=== PATIENT | female | born 1945 | race Caucasian/White ===

== ENCOUNTER 2023-09-06 12:34 | Inpatient (IN) | payer MEDICARE, MEDICAID ==
[~2023-09-06] VITALS: Ht 147.3 cm; Wt 50.3 kg
[2023-09-06 12:35] VITALS: BP_SYST 89; PULSE 83; RESP 24; TEMP 97.3; O2SAT 100
[2023-09-06] MEDS: cefTRIAXone 1 GM IVPB PREMIX 50 ML IV ONE (12:45)
[2023-09-06] MEDS ORDERED: ALBUTEROL SULFATE 0.083% 2.5 MG/3 ML VIAL.NEB INH ONE (12:51)
[2023-09-06] MEDS ORDERED: IPRATROPIUM BROM 0.5 MG/2.5 ML VIAL.NEB (ATROVENT) INH ONE (12:51)
[2023-09-06] MEDS: ALBUTEROL SULFATE 0.083% 2.5 MG/3 ML VIAL.NEB INH ONE (12:57)
[2023-09-06] MEDS: IPRATROPIUM BROM 0.5 MG/2.5 ML VIAL.NEB (ATROVENT) INH ONE (12:57)
[2023-09-06] MEDS ORDERED: AMLO5TAB4 PO (13:00)
[2023-09-06] MEDS ORDERED: SODI650T PO (13:00)
[2023-09-06] MEDS ORDERED: ACET-2634 PO (13:00)
[2023-09-06] MEDS ORDERED: ALLO100T PO (13:00)
[2023-09-06] MEDS ORDERED: BISA10SU61 RC (13:00)
[2023-09-06] MEDS: methylPREDNISolone SOD SUCC/PF 62.5 MG/ML VIAL IVP ONE (13:00)
[2023-09-06] MEDS ORDERED: HYDR-3917 PO (13:00)
[2023-09-06] MEDS ORDERED: ALBU2.5V7 INH (13:00)
[2023-09-06] MEDS ORDERED: MOM PO (13:00)
[2023-09-06] MEDS ORDERED: DOCU-144 PO (13:00)
[2023-09-06] MEDS ORDERED: SENN8.6T19 PO (13:00)
[2023-09-06] MEDS ORDERED: ATEN-41 PO (13:00)
[2023-09-06 13:59] LABS: BASOPHILS % (AUTO) 0.2 % (0.0-2.0); EOSINOPHILS # (AUTO) 0.2 K/uL (0.0-0.4); EOSINOPHILS % (AUTO) 1.2 % (0.0-4.0); HEMATOCRIT 24.2 % (36-48); HEMOGLOBIN 7.9 g/dL (12.0-16.0); LYMPHOCYTES # (AUTO) 2.4 K/uL (1.0-5.5); LYMPHOCYTES % (AUTO) 13.2 % (20.5-51.5); MEAN CORPUSCULAR HEMOGLOBIN 33 pg (27-31); MEAN CORPUSCULAR HGB CONC 33 % (32-36); MEAN CORPUSCULAR VOLUME 99 fL (79.0-98.0); MONOCYTES # (AUTO) 1.3 K/uL (0.0-1.0); MONOCYTES % (AUTO) 7.2 % (1.7-9.3); NEUTROPHILS # (AUTO) 14.2 K/uL (1.8-7.7); NEUTROPHILS % (AUTO) 78.2 % (40.0-70.0); PLATELET COUNT (AUTO) 469 K/uL (130-430); RED BLOOD CELL COUNT(AUTO) 2.43 MIL/uL (4.2-6.2); RED CELL DISTRIBUTION WIDTH 16.1 % (9.0-15.0); WHITE BLOOD COUNT (AUTO) 18.1 K/uL (4.8-10.8)
[2023-09-06 14:09] LABS: ALANINE AMINOTRANSFERASE 14 U/L (12-78); ALBUMIN 2.2 g/dL (3.4-4.8); ANION GAP 11 (5-15); ASPARTATE AMINOTRANSFERASE 15 U/L (10-37); BILIRUBIN,DIRECT 0.2 mg/dL (0.0-0.3); CALCIUM 8.8 mg/dL (8.4-11.0); CARBON DIOXIDE 21 mmol/L (23-29); CHLORIDE 107 mmol/L (98-107); CREATININE 0.62 mg/dL (0.55-1.30); GLUCOSE 115 mg/dL (74-106); POTASSIUM 4.5 mmol/L (3.5-5.1); SODIUM SERUM 139 mmol/L (136-145); TOTAL BILIRUBIN 0.5 mg/dL (0.0-1.0); UREA NITROGEN, BLOOD 22 mg/dL (8-21)
[2023-09-06 14:22] LABS: BILIRUBIN,URINE NEGATIVE (NEGATIVE); BLOOD, URINE NEGATIVE (NEGATIVE); CLARITY/URINE CLEAR (CLEAR); COLOR,URINE YELLOW (YELLOW); GLUCOSE,URINE NEGATIVE (NEGATIVE); KETONES,URINE NEGATIVE (NEGATIVE); LEUKOCYTE ESTERASE ,URINE TRACE (NEGATIVE); NITRITE, URINE POSITIVE (NEGATIVE); PH,URINE 5.5 (5.0-8.0); PROTEIN URINE TRACE (NEGATIVE); UROBILINOGEN,URINE 0.2 (0.2-1.0)
[2023-09-06 14:46] LABS: BACTERIA,URINE MODERATE /HPF (None Seen); RBC,URINE 0-3 /HPF (0-3)
[2023-09-06] MEDS: D5/0.45 NS 1,000 ML IV SCH (16:30)
[2023-09-06] MEDS: KETAMINE HCL 500 MG/10 ML VIAL IVP ONE (17:35)
[2023-09-06] MEDS ORDERED: LIDOCAINE 1%, 20 ML MDV 40 ML ONE (17:39)
[2023-09-06 18:24] VITALS: BP_SYST 89; PULSE 73; O2SAT 100
[2023-09-06] MEDS: MORPHINE 2 MG/ML INJ. SYRINGE IVP ONE (20:45)
[2023-09-06 21:30] VITALS: BP_SYST 137; PULSE 74; RESP 20; TEMP 98
[2023-09-07] VITALS (7 sets, daily range): BP systolic 110–155; PULSE 67–81; RESP 15–20; TEMP 97–98.3; O2SAT 91–98
[2023-09-07] MEDS ORDERED: ACETAMINOPHEN 325 MG TABLET PO PRN ×2 (10:15→10:30)
[2023-09-07] MEDS ORDERED: IPRATROPIUM BROM 0.5 MG/2.5 ML VIAL.NEB (ATROVENT) INH PRN (10:15)
[2023-09-07] MEDS ORDERED: LORazepam 2 MG/ML VIAL IVP PRN (10:15)
[2023-09-07] MEDS ORDERED: NALOXONE HCL 0.4 MG/ML AMP (NARCAN) IVP PRN ×2 (10:15)
[2023-09-07] MEDS ORDERED: ALBUTEROL SULFATE 0.083% 2.5 MG/3 ML VIAL.NEB INH PRN (10:15)
[2023-09-07] MEDS ORDERED: MILK OF MAGNESIA 30 ML UDC PO PRN (10:15)
[2023-09-07] MEDS ORDERED: BISACODYL 10 MG/SUPPOSITORY RC SCH (10:15)
[2023-09-07] MEDS ORDERED: HYDROcodone/ACETAMIN 5-325 MG TAB (NORCO/ VICODIN) PO PRN (10:15)
[2023-09-07] MEDS ORDERED: HYDROcodone/ACETAMIN 10-325 MG TAB PO PRN (10:15)
[2023-09-07] MEDS ORDERED: ONDANSETRON HCL 4 MG/2 ML VIAL IVP PRN (10:15)
[2023-09-07 10:26] LABS: BASOPHILS % (AUTO) 0.1 % (0.0-2.0); LYMPHOCYTES # (AUTO) 0.9 K/uL (1.0-5.5); LYMPHOCYTES % (AUTO) 4.7 % (20.5-51.5); MEAN CORPUSCULAR HEMOGLOBIN 32 pg (27-31); MEAN CORPUSCULAR HGB CONC 33 % (32-36); MEAN CORPUSCULAR VOLUME 98 fL (79.0-98.0); MONOCYTES # (AUTO) 0.4 K/uL (0.0-1.0); NEUTROPHILS # (AUTO) 17.4 K/uL (1.8-7.7); NEUTROPHILS % (AUTO) 93.2 % (40.0-70.0); PLATELET COUNT (AUTO) 380 K/uL (130-430); RED BLOOD CELL COUNT(AUTO) 2.19 MIL/uL (4.2-6.2); RED CELL DISTRIBUTION WIDTH 15.6 % (9.0-15.0); WHITE BLOOD COUNT (AUTO) 18.7 K/uL (4.8-10.8)
[2023-09-07 10:50] LABS: HEMATOCRIT 21.4 % (36-48)
[2023-09-07 10:53] LABS: ALANINE AMINOTRANSFERASE 13 U/L (12-78); ALBUMIN 1.8 g/dL (3.4-4.8); ANION GAP 10 (5-15); ASPARTATE AMINOTRANSFERASE 13 U/L (10-37); CALCIUM 7.5 mg/dL (8.4-11.0); CARBON DIOXIDE 21 mmol/L (23-29); CHLORIDE 108 mmol/L (98-107); CREATININE 0.58 mg/dL (0.55-1.30); GLUCOSE 148 mg/dL (74-106); SODIUM SERUM 139 mmol/L (136-145); TOTAL BILIRUBIN 0.4 mg/dL (0.0-1.0); TOTAL PROTEIN, SERUM 5.3 g/dL (6.4-8.3); UREA NITROGEN, BLOOD 18 mg/dL (8-21)
[2023-09-07] MEDS: ALLOPURINOL 100 MG TABLET (ZYLOPRIM) PO ONE (12:19)
[2023-09-07] MEDS: amLODIPine BESYLATE 5 MG TABLET PO ONE (12:24)
[2023-09-07] MEDS: ATENOLOL 25 MG TABLET(TENORMIN) PO ONE (12:24)
[2023-09-07] MEDS ORDERED: DOCUSATE SODIUM 100 MG CAPSULE PO SCH (21:00)
[2023-09-07] MEDS: DOCUSATE SODIUM 100 MG/10 ML UDC PO SCH (21:34)
[2023-09-07] MEDS: SENNOSIDES 8.6 MG TABLET PO SCH (21:34)
[2023-09-07] MEDS: SODIUM BICARBONATE 650 MG TABLET PO SCH (21:34)
[2023-09-08] VITALS: BP_SYST 108; PULSE 73; RESP 16; TEMP 97; O2SAT 98
[2023-09-08 05:18] LABS: BASOPHILS % (AUTO) 0.1 % (0.0-2.0); LYMPHOCYTES # (AUTO) 1.2 K/uL (1.0-5.5); LYMPHOCYTES % (AUTO) 8.4 % (20.5-51.5); MEAN CORPUSCULAR HEMOGLOBIN 32 pg (27-31); MEAN CORPUSCULAR HGB CONC 34 % (32-36); MEAN CORPUSCULAR VOLUME 96 fL (79.0-98.0); MONOCYTES # (AUTO) 0.8 K/uL (0.0-1.0); MONOCYTES % (AUTO) 5.6 % (1.7-9.3); NEUTROPHILS % (AUTO) 85.9 % (40.0-70.0); PLATELET COUNT (AUTO) 351 K/uL (130-430); RED CELL DISTRIBUTION WIDTH 15.5 % (9.0-15.0); WHITE BLOOD COUNT (AUTO) 13.9 K/uL (4.8-10.8)
[2023-09-08 05:42] LABS: ANION GAP 13 (5-15); CALCIUM 7.8 mg/dL (8.4-11.0); CARBON DIOXIDE 19 mmol/L (23-29); CHLORIDE 107 mmol/L (98-107); CREATININE 0.58 mg/dL (0.55-1.30); GLUCOSE 95 mg/dL (74-106); POTASSIUM 3.2 mmol/L (3.5-5.1); SODIUM SERUM 139 mmol/L (136-145); UREA NITROGEN, BLOOD 15 mg/dL (8-21)
[2023-09-08 07:50] VITALS: BP_SYST 158; PULSE 68; RESP 16; TEMP 97.3; O2SAT 99
[2023-09-08 07:54] LABS: HEMATOCRIT 20.2 % (36-48); HEMOGLOBIN 6.8 g/dL (12.0-16.0)
[2023-09-08 08:15] VITALS: O2SAT 98
[2023-09-08] MEDS: ATENOLOL 25 MG TABLET(TENORMIN) PO SCH (09:11)
[2023-09-08] MEDS: amLODIPine BESYLATE 5 MG TABLET PO SCH (09:12)
[2023-09-08] MEDS: ALLOPURINOL 100 MG TABLET (ZYLOPRIM) PO SCH (09:21)
[2023-09-08 11:08] VITALS: BP_SYST 111; PULSE 73; RESP 16; TEMP 97.6; O2SAT 99
[2023-09-08] MEDS: POTASSIUM CHLORIDE 20 MEQ TABLET.ER PO ONE (12:04)
[2023-09-08] MEDS: NORMAL SALINE 5 ML DISP.SYRIN IVF SCH (14:48)
[2023-09-08 15:30] VITALS: BP_SYST 101; PULSE 72; RESP 15; TEMP 97.7; O2SAT 98
[2023-09-08 20:00] VITALS: BP_SYST 142; PULSE 65; RESP 17; TEMP 97.8; O2SAT 98
[2023-09-09] VITALS (7 sets, daily range): BP systolic 118–138; PULSE 76–82; RESP 14–20; TEMP 97.3–98.1; O2SAT 93–99
[2023-09-09 06:09] LABS: BASOPHILS % (AUTO) 0.1 % (0.0-2.0); EOSINOPHILS # (AUTO) 0.1 K/uL (0.0-0.4); EOSINOPHILS % (AUTO) 0.4 % (0.0-4.0); HEMATOCRIT 30.2 % (36-48); HEMOGLOBIN 10.2 g/dL (12.0-16.0); LYMPHOCYTES # (AUTO) 1.8 K/uL (1.0-5.5); LYMPHOCYTES % (AUTO) 13.2 % (20.5-51.5); MEAN CORPUSCULAR HEMOGLOBIN 31 pg (27-31); MEAN CORPUSCULAR HGB CONC 34 % (32-36); MEAN CORPUSCULAR VOLUME 93 fL (79.0-98.0); MONOCYTES # (AUTO) 0.8 K/uL (0.0-1.0); MONOCYTES % (AUTO) 5.6 % (1.7-9.3); NEUTROPHILS # (AUTO) 11.3 K/uL (1.8-7.7); NEUTROPHILS % (AUTO) 80.7 % (40.0-70.0); PLATELET COUNT (AUTO) 277 K/uL (130-430); RED BLOOD CELL COUNT(AUTO) 3.26 MIL/uL (4.2-6.2); RED CELL DISTRIBUTION WIDTH 16.3 % (9.0-15.0); WHITE BLOOD COUNT (AUTO) 13.9 K/uL (4.8-10.8)
[2023-09-09 06:14] LABS: ERYTHROCYTE SEDIMENTATION RATE 20 MM/HR (0-20)
[2023-09-09 06:50] LABS: ALANINE AMINOTRANSFERASE 9 U/L (12-78); ALBUMIN 1.7 g/dL (3.4-4.8); ANION GAP 10 (5-15); ASPARTATE AMINOTRANSFERASE 17 U/L (10-37); CALCIUM 8.1 mg/dL (8.4-11.0); CARBON DIOXIDE 22 mmol/L (23-29); CHLORIDE 109 mmol/L (98-107); CREATININE 0.58 mg/dL (0.55-1.30); GLUCOSE 71 mg/dL (74-106); POTASSIUM 3.4 mmol/L (3.5-5.1); SODIUM SERUM 141 mmol/L (136-145); TOTAL PROTEIN, SERUM 5.1 g/dL (6.4-8.3); UREA NITROGEN, BLOOD 12 mg/dL (8-21)
[2023-09-09] MEDS: POTASSIUM CHLORIDE 20 MEQ TABLET.ER PO ONE (10:40)
[2023-09-09] MEDS: CALCIUM GLUC 2 GM/100ML-NACL 100 ML IV ONE (10:40)
[2023-09-10 00:10] VITALS: BP_SYST 137; PULSE 85; RESP 16; TEMP 97.8; O2SAT 99
[2023-09-10 05:40] LABS: BASOPHILS % (AUTO) 0.1 % (0.0-2.0); EOSINOPHILS # (AUTO) 0.1 K/uL (0.0-0.4); EOSINOPHILS % (AUTO) 0.9 % (0.0-4.0); HEMOGLOBIN 10.2 g/dL (12.0-16.0); LYMPHOCYTES # (AUTO) 1.8 K/uL (1.0-5.5); LYMPHOCYTES % (AUTO) 15.3 % (20.5-51.5); MEAN CORPUSCULAR HEMOGLOBIN 32 pg (27-31); MEAN CORPUSCULAR HGB CONC 34 % (32-36); MEAN CORPUSCULAR VOLUME 93 fL (79.0-98.0); MONOCYTES # (AUTO) 0.5 K/uL (0.0-1.0); MONOCYTES % (AUTO) 4.6 % (1.7-9.3); NEUTROPHILS # (AUTO) 9.3 K/uL (1.8-7.7); NEUTROPHILS % (AUTO) 79.1 % (40.0-70.0); PLATELET COUNT (AUTO) 219 K/uL (130-430); RED BLOOD CELL COUNT(AUTO) 3.23 MIL/uL (4.2-6.2); RED CELL DISTRIBUTION WIDTH 16.7 % (9.0-15.0); WHITE BLOOD COUNT (AUTO) 11.8 K/uL (4.8-10.8)
[2023-09-10 05:46] LABS: ERYTHROCYTE SEDIMENTATION RATE 18 MM/HR (0-20)
[2023-09-10 05:51] LABS: ANION GAP 11 (5-15); CALCIUM 8.4 mg/dL (8.4-11.0); CARBON DIOXIDE 22 mmol/L (23-29); CHLORIDE 109 mmol/L (98-107); CREATININE 0.55 mg/dL (0.55-1.30); GLUCOSE 76 mg/dL (74-106); POTASSIUM 3.1 mmol/L (3.5-5.1); SODIUM SERUM 142 mmol/L (136-145); UREA NITROGEN, BLOOD 11 mg/dL (8-21)
[2023-09-10 07:45] VITALS: BP_SYST 119; PULSE 76; RESP 16; TEMP 98.4; O2SAT 98
[2023-09-10 07:46] VITALS: O2SAT 98
[2023-09-10] MEDS: POTASSIUM CHLORIDE 20 MEQ TABLET.ER PO ONE (11:08)
[2023-09-10 12:36] VITALS: BP_SYST 118; PULSE 77; RESP 17; TEMP 98.3; O2SAT 97
[2023-09-10] MEDS ORDERED: LEVO-62 PO (16:45)
[2023-09-10 16:54] VITALS: BP_SYST 120; PULSE 78; RESP 16; TEMP 98.5; O2SAT 97
== END 2023-09-10 18:30 | DRG 871 ==
LOC: SED 12:34 → SMU 16:17 → STU 20:24
PROVIDERS: ADMIT Preventive Medicine Preventive Medicine/Occupational Environmental Medicine; ATTEND Preventive Medicine Preventive Medicine/Occupational Environmental Medicine
PROC: 0W9930Z Drainage of Right Pleural Cavity with Drainage Device, Percutaneous Approach (ICD-10-PCS; 2023-09-06)
PROC: 5A09357 Assistance with Respiratory Ventilation, Less than 24 Consecutive Hours, Continuous Positive Airway Pressure (ICD-10-PCS; 2023-09-06)
PROC: 30233N1 Transfusion of Nonautologous Red Blood Cells into Peripheral Vein, Percutaneous Approach (ICD-10-PCS; principal; 2023-09-08)
DX: A41.9 Sepsis, unspecified organism (principal); E43 Unspecified severe protein-calorie malnutrition; J18.9 Pneumonia, unspecified organism; J96.01 Acute respiratory failure with hypoxia; J94.2 Hemothorax; J94.8 Other specified pleural conditions; I10 Essential (primary) hypertension; F03.90 Unspecified dementia, unspecified severity, without behavioral disturbance, psychotic disturbance, mood disturbance, and anxiety; D64.9 Anemia, unspecified; M10.9 Gout, unspecified; E87.6 Hypokalemia; K59.00 Constipation, unspecified; D75.839 Thrombocytosis, unspecified; Z79.899 Other long term (current) drug therapy; Z68.23 Body mass index [BMI] 23.0-23.9, adult; Z66 Do not resuscitate
CPT/HCPCS: 36415; 71045; 80048; 80053; 80076; 81000; 81001; 81015; 83605; 84484; 85025; 85651; 86886; 86900; 86901; 86920; 87040; 87081; 87086; 94070; 94640; 94660; 94760; 99285; G0378; J0696; J1956; J2001; J2270; J2930; P9021

== ENCOUNTER 2023-09-19 00:25 | Inpatient (IN) | payer MEDICARE, MEDICAID ==
[2023-09-19] VITALS (27 sets, daily range): BP systolic 91–141; PULSE 73–113; RESP 21–49; TEMP 96.4–98.6; O2SAT 90–99
[~2023-09-19] VITALS: Ht 149.9 cm; Wt 54.4 kg
[~2023-09-19 00:25] MED LIST: ACET-2634 PO; ALBU2.5V7 INH; ALLO100T PO; AMLO5TAB4 PO; ATEN-41 PO; BISA10SU61 RC; DOCU-144 PO; HYDR-3917 PO; LEVO-62 PO; MOM PO; SENN8.6T19 PO; SODI650T PO
[2023-09-19 01:03] LABS: HEMOGLOBIN 9.2 g/dL (12.0-16.0); MEAN CORPUSCULAR HEMOGLOBIN 31 pg (27-31)
[2023-09-19 01:13] LABS: BASOPHILS # (AUTO) 0.1 K/uL (0.0-0.2); EOSINOPHILS # (AUTO) 0.1 K/uL (0.0-0.4); EOSINOPHILS % (AUTO) 0.7 % (0.0-4.0); HEMATOCRIT 27.1 % (36-48); INFLUENZA TYPE A Negative (NEGATIVE); INFLUENZA TYPE B NEGATIVE (NEGATIVE); LYMPHOCYTES # (AUTO) 1.5 K/uL (1.0-5.5); LYMPHOCYTES % (AUTO) 13.7 % (20.5-51.5); MEAN CORPUSCULAR HGB CONC 34 % (32-36); MEAN CORPUSCULAR VOLUME 92 fL (79.0-98.0); MONOCYTES # (AUTO) 0.8 K/uL (0.0-1.0); MONOCYTES % (AUTO) 7.7 % (1.7-9.3); NEUTROPHILS # (AUTO) 8.4 K/uL (1.8-7.7); NEUTROPHILS % (AUTO) 76.9 % (40.0-70.0); PLATELET COUNT (AUTO) 231 K/uL (130-430); RED BLOOD CELL COUNT(AUTO) 2.94 MIL/uL (4.2-6.2); RED CELL DISTRIBUTION WIDTH 16.4 % (9.0-15.0); WHITE BLOOD COUNT (AUTO) 10.9 K/uL (4.8-10.8)
[2023-09-19 01:14] LABS: BILIRUBIN,URINE 2+ (NEGATIVE); BLOOD, URINE NEGATIVE (NEGATIVE); CLARITY/URINE CLEAR (CLEAR); COLOR,URINE YELLOW (YELLOW); GLUCOSE,URINE TRACE (NEGATIVE); KETONES,URINE 1+ (NEGATIVE); LEUKOCYTE ESTERASE ,URINE TRACE (NEGATIVE); NITRITE, URINE NEGATIVE (NEGATIVE); PH,URINE 5.5 (5.0-8.0); PROTEIN URINE 1+ (NEGATIVE)
[2023-09-19] MEDS: cefTRIAXone 1 GM IVPB PREMIX 50 ML IV ONE (01:16)
[2023-09-19 01:20] LABS: ANION GAP 16 (5-15); CALCIUM 7.4 mg/dL (8.4-11.0); CARBON DIOXIDE 20 mmol/L (23-29); CHLORIDE 97 mmol/L (98-107); CREATININE 1.12 mg/dL (0.55-1.30); GLUCOSE 83 mg/dL (74-106); POTASSIUM 3.3 mmol/L (3.5-5.1); SODIUM SERUM 133 mmol/L (136-145); UREA NITROGEN, BLOOD 11 mg/dL (8-21)
[2023-09-19] MEDS: methylPREDNISolone SOD SUCC/PF 62.5 MG/ML VIAL IVP ONE (01:55)
[2023-09-19] MEDS ORDERED: MAGNESIUM SULFATE 1 GM/2 ML VIAL IV ONE (03:15)
[2023-09-19] MEDS: MAGNESIUM SULFATE/D5W 1 GM/100 ML PIGGYBACK IV ONE (04:29)
[2023-09-19] MEDS: D5LR 1,000 ML IV SCH (04:29)
[2023-09-19] MEDS: METHYLPREDNISOLONE SOD SUCC 40 MG/ML VIAL IVP SCH (05:32)
[2023-09-19] MEDS ORDERED: MILK OF MAGNESIA 30 ML UDC PO PRN (06:45)
[2023-09-19] MEDS ORDERED: NALOXONE HCL 0.4 MG/ML AMP (NARCAN) IVP PRN (06:45)
[2023-09-19] MEDS ORDERED: ACETAMINOPHEN 500 MG TABLET PO PRN (06:45)
[2023-09-19] MEDS ORDERED: HYDROcodone/ACETAMIN 5-325 MG TAB (NORCO/ VICODIN) PO PRN (06:45)
[2023-09-19] MEDS ORDERED: KCL 40 mEq in 100 mL (PREMIX) 100 ML IV ONE (06:45)
[2023-09-19] MEDS: IPRATROPIUM/ALBUTEROL SULFATE 3 ML AMPUL.NEB (DUONEB) INH SCH (07:26)
[2023-09-19 08:12] LABS: ABG O2 SAT% ESTIMATE 97.2 % (94.0-100.0); BLOOD GAS BASE EXCESS -3.6 mmol/L (-3.0-3.0); BLOOD GAS HCO3 18.8 mmol/L (21.0-27.0); BLOOD GAS PCO2 27.7 mmHg (35.0-45.0); BLOOD GAS PO2 88.1 mmHg (75.0-100.0)
[2023-09-19 08:21] LABS: ALLEN'S TEST POSITIVE (P)
[2023-09-19 08:26] LABS: BASOPHILS % (AUTO) 0.2 % (0.0-2.0); HEMATOCRIT 25.1 % (36-48); HEMOGLOBIN 8.1 g/dL (12.0-16.0); LYMPHOCYTES # (AUTO) 0.4 K/uL (1.0-5.5); LYMPHOCYTES % (AUTO) 5.1 % (20.5-51.5); MEAN CORPUSCULAR HEMOGLOBIN 31 pg (27-31); MEAN CORPUSCULAR HGB CONC 33 % (32-36); MEAN CORPUSCULAR VOLUME 95 fL (79.0-98.0); MONOCYTES # (AUTO) 0.1 K/uL (0.0-1.0); MONOCYTES % (AUTO) 1.2 % (1.7-9.3); NEUTROPHILS # (AUTO) 6.9 K/uL (1.8-7.7); NEUTROPHILS % (AUTO) 93.5 % (40.0-70.0); PLATELET COUNT (AUTO) 215 K/uL (130-430); RED BLOOD CELL COUNT(AUTO) 2.64 MIL/uL (4.2-6.2); RED CELL DISTRIBUTION WIDTH 16.4 % (9.0-15.0); WHITE BLOOD COUNT (AUTO) 7.4 K/uL (4.8-10.8)
[2023-09-19 08:31] LABS: TOTAL IRON BIND. CAPACITY 92 ug/dL (250-450)
[2023-09-19 08:40] LABS: ALBUMIN 1.5 g/dL (3.4-4.8); ANION GAP 19 (5-15); ASPARTATE AMINOTRANSFERASE 13 U/L (10-37); CALCIUM 7.5 mg/dL (8.4-11.0); CARBON DIOXIDE 17 mmol/L (23-29); CHLORIDE 100 mmol/L (98-107); CREATININE 1.22 mg/dL (0.55-1.30); POTASSIUM 3.1 mmol/L (3.5-5.1); SODIUM SERUM 136 mmol/L (136-145); TOTAL BILIRUBIN 1.1 mg/dL (0.0-1.0); TOTAL PROTEIN, SERUM 4.6 g/dL (6.4-8.3); UREA NITROGEN, BLOOD 12 mg/dL (8-21)
[2023-09-19 08:44] LABS: GLUCOSE 520 mg/dL (74-106)
[2023-09-19] MEDS ORDERED: BISACODYL 10 MG/SUPPOSITORY RC PRN (09:00)
[2023-09-19] MEDS ORDERED: AZITHROMYCIN 500 MG in NS 250 ML IV SCH (09:00)
[2023-09-19] MEDS ORDERED: amLODIPine BESYLATE 5 MG TABLET PO SCH (09:00)
[2023-09-19 09:01] LABS: ALANINE AMINOTRANSFERASE 6 U/L (12-78)
[2023-09-19] MEDS: ATENOLOL 25 MG TABLET(TENORMIN) PO SCH (09:03)
[2023-09-19] MEDS: ALLOPURINOL 100 MG TABLET (ZYLOPRIM) PO SCH (09:04)
[2023-09-19] MEDS: DOCUSATE SODIUM 100 MG CAPSULE PO SCH (09:06)
[2023-09-19] MEDS: PIPERACILLIN/TAZO 3.375 GM in D5W 50 ML IV ONE (09:07)
[2023-09-19] MEDS: POTASSIUM CHLORIDE 40 MEQ in NS 250 ML IV ONE (09:33)
[2023-09-19] MEDS: AZITHROMYCIN 500 MG in NS 250 ML IV SCH (14:21)
[2023-09-19] MEDS: PIPERACILLIN/TAZO 3.375 GM in D5W 50 ML IV SCH (14:26)
[2023-09-19] MEDS: SENNOSIDES 8.6 MG TABLET PO SCH (21:21)
[2023-09-20] VITALS (20 sets, daily range): BP systolic 87–136; PULSE 89–118; RESP 22–44; TEMP 97.1–99.1; O2SAT 91–98
[2023-09-20 06:43] LABS: BASOPHILS % (AUTO) 0.1 % (0.0-2.0); HEMATOCRIT 24.4 % (36-48); HEMOGLOBIN 8.5 g/dL (12.0-16.0); LYMPHOCYTES # (AUTO) 0.3 K/uL (1.0-5.5); LYMPHOCYTES % (AUTO) 3.6 % (20.5-51.5); MEAN CORPUSCULAR HEMOGLOBIN 32 pg (27-31); MEAN CORPUSCULAR HGB CONC 35 % (32-36); MEAN CORPUSCULAR VOLUME 92 fL (79.0-98.0); MONOCYTES # (AUTO) 0.1 K/uL (0.0-1.0); MONOCYTES % (AUTO) 1.2 % (1.7-9.3); NEUTROPHILS % (AUTO) 95.1 % (40.0-70.0); PLATELET COUNT (AUTO) 267 K/uL (130-430); RED BLOOD CELL COUNT(AUTO) 2.65 MIL/uL (4.2-6.2); RED CELL DISTRIBUTION WIDTH 16.4 % (9.0-15.0); WHITE BLOOD COUNT (AUTO) 9.5 K/uL (4.8-10.8)
[2023-09-20 07:20] LABS: ALANINE AMINOTRANSFERASE 10 U/L (12-78); ALBUMIN 1.7 g/dL (3.4-4.8); ANION GAP 20 (5-15); ASPARTATE AMINOTRANSFERASE 26 U/L (10-37); CALCIUM 7.7 mg/dL (8.4-11.0); CARBON DIOXIDE 17 mmol/L (23-29); CHLORIDE 104 mmol/L (98-107); CREATININE 1.26 mg/dL (0.55-1.30); GLUCOSE 154 mg/dL (74-106); PHOSPHORUS 3.7 mg/dL (2.7-4.5); POTASSIUM 3.2 mmol/L (3.5-5.1); SODIUM SERUM 141 mmol/L (136-145); TOTAL BILIRUBIN 0.9 mg/dL (0.0-1.0); TOTAL PROTEIN, SERUM 5.2 g/dL (6.4-8.3); UREA NITROGEN, BLOOD 20 mg/dL (8-21)
[2023-09-20] MEDS ORDERED: cefTRIAXone 1 GM VIAL IV ONE (09:00)
[2023-09-20] MEDS: KCL 40 mEq in 100 mL (PREMIX) 100 ML IV ONE (13:13)
[2023-09-20] MEDS: MEGESTROL ACETATE 400 MG/10 ML UDC PO ONE (13:55)
[2023-09-20] MEDS: POTASSIUM CHLORIDE 40 MEQ in NS 250 ML IV ONE (14:36)
[2023-09-20] MEDS: METHYLPREDNISOLONE SOD SUCC 40 MG/ML VIAL IVP SCH (18:42)
[2023-09-20] MEDS: QUEtiapine FUMARATE 25 MG TABLET PO SCH (21:00)
[2023-09-21] VITALS (14 sets, daily range): BP systolic 83–114; PULSE 95–112; RESP 18–38; TEMP 98.4–99.4; O2SAT 91–98
[2023-09-21 04:45] LABS: BASOPHILS % (AUTO) 0.1 % (0.0-2.0); HEMOGLOBIN 7.9 g/dL (12.0-16.0); LYMPHOCYTES # (AUTO) 0.4 K/uL (1.0-5.5); LYMPHOCYTES % (AUTO) 5.4 % (20.5-51.5); MEAN CORPUSCULAR HEMOGLOBIN 32 pg (27-31); MEAN CORPUSCULAR HGB CONC 34 % (32-36); MEAN CORPUSCULAR VOLUME 93 fL (79.0-98.0); MONOCYTES # (AUTO) 0.2 K/uL (0.0-1.0); MONOCYTES % (AUTO) 2.4 % (1.7-9.3); NEUTROPHILS # (AUTO) 6.8 K/uL (1.8-7.7); NEUTROPHILS % (AUTO) 92.1 % (40.0-70.0); PLATELET COUNT (AUTO) 300 K/uL (130-430); RED BLOOD CELL COUNT(AUTO) 2.48 MIL/uL (4.2-6.2); RED CELL DISTRIBUTION WIDTH 16.4 % (9.0-15.0); WHITE BLOOD COUNT (AUTO) 7.4 K/uL (4.8-10.8)
[2023-09-21 05:16] LABS: ALANINE AMINOTRANSFERASE 14 U/L (12-78); ALBUMIN 1.7 g/dL (3.4-4.8); ANION GAP 15 (5-15); ASPARTATE AMINOTRANSFERASE 17 U/L (10-37); CALCIUM 7.4 mg/dL (8.4-11.0); CARBON DIOXIDE 20 mmol/L (23-29); CHLORIDE 111 mmol/L (98-107); CREATININE 1.36 mg/dL (0.55-1.30); GLUCOSE 139 mg/dL (74-106); POTASSIUM 3.9 mmol/L (3.5-5.1); SODIUM SERUM 146 mmol/L (136-145); TOTAL BILIRUBIN 0.7 mg/dL (0.0-1.0); TOTAL PROTEIN, SERUM 4.9 g/dL (6.4-8.3); UREA NITROGEN, BLOOD 24 mg/dL (8-21)
[2023-09-21] MEDS: MEGESTROL ACETATE 400 MG/10 ML UDC PO SCH (09:00)
[2023-09-21] MEDS: ALBUTEROL SULFATE 0.083% 2.5 MG/3 ML VIAL.NEB INH PRN (19:10)
[2023-09-21] MEDS: EPOETIN ALFA-EPBX 4,000 UNITS/ML VIAL SUBCUT SCH (20:50)
[2023-09-21] MEDS: SOD FERRIC GLUC COMPLEX/SUC 125 MG in NS 100 ML IV SCH (20:50)
[2023-09-21] MEDS: QUEtiapine FUMARATE 25 MG TABLET PO ONE (20:51)
[2023-09-22] VITALS (11 sets, daily range): BP systolic 110–148; PULSE 88–99; RESP 17–30; TEMP 97.2–100.1; O2SAT 94–99
[2023-09-22 04:03] LABS: HEMATOCRIT 24.1 % (36-48); HEMOGLOBIN 8.2 g/dL (12.0-16.0); LYMPHOCYTES # (AUTO) 0.3 K/uL (1.0-5.5); LYMPHOCYTES % (AUTO) 5.7 % (20.5-51.5); MEAN CORPUSCULAR HEMOGLOBIN 32 pg (27-31); MEAN CORPUSCULAR HGB CONC 34 % (32-36); MEAN CORPUSCULAR VOLUME 93 fL (79.0-98.0); MONOCYTES # (AUTO) 0.1 K/uL (0.0-1.0); MONOCYTES % (AUTO) 1.9 % (1.7-9.3); NEUTROPHILS # (AUTO) 4.8 K/uL (1.8-7.7); NEUTROPHILS % (AUTO) 92.4 % (40.0-70.0); PLATELET COUNT (AUTO) 312 K/uL (130-430); RED BLOOD CELL COUNT(AUTO) 2.59 MIL/uL (4.2-6.2); RED CELL DISTRIBUTION WIDTH 16.6 % (9.0-15.0); WHITE BLOOD COUNT (AUTO) 5.2 K/uL (4.8-10.8)
[2023-09-22 04:12] LABS: INR 1.3 (0.8-1.2); PROTHROMBIN TIME 12.9 SECS (9.5-12.5)
[2023-09-22 04:22] LABS: ALANINE AMINOTRANSFERASE 10 U/L (12-78); ALBUMIN 1.9 g/dL (3.4-4.8); ANION GAP 13 (5-15); ASPARTATE AMINOTRANSFERASE 9 U/L (10-37); CALCIUM 7.6 mg/dL (8.4-11.0); CARBON DIOXIDE 23 mmol/L (23-29); CHLORIDE 114 mmol/L (98-107); CREATININE 1.06 mg/dL (0.55-1.30); GLUCOSE 114 mg/dL (74-106); POTASSIUM 3.3 mmol/L (3.5-5.1); SODIUM SERUM 150 mmol/L (136-145); TOTAL BILIRUBIN 0.6 mg/dL (0.0-1.0); TOTAL PROTEIN, SERUM 4.9 g/dL (6.4-8.3); UREA NITROGEN, BLOOD 21 mg/dL (8-21)
[2023-09-22] MEDS: CEFAZOLIN 1 GM IVPB PREMIX 50 ML IV ONE (09:57)
[2023-09-22] MEDS: fentaNYL CITRATE/PF 100 MCG/2 ML AMP ONE (10:07)
[2023-09-22] MEDS: MIDAZOLAM HCL 5 MG/5 ML VIAL ONE (10:07)
[2023-09-22] MEDS: QUEtiapine FUMARATE 25 MG TABLET PO SCH (17:06)
[2023-09-22] MEDS: POTASSIUM CHLORIDE 40 MEQ in D5W 250 ML IV ONE (17:50)
[2023-09-22] MEDS: KCL 40 mEq in D5W 1000 mL 1,000 ML IV SCH (18:18)
[2023-09-23] VITALS (13 sets, daily range): BP systolic 130–140; PULSE 96–105; RESP 15–17; TEMP 97.5–98.3; O2SAT 94–100
[2023-09-23 06:00] LABS: BASOPHILS % (AUTO) 0.1 % (0.0-2.0); HEMATOCRIT 26.9 % (36-48); LYMPHOCYTES # (AUTO) 0.5 K/uL (1.0-5.5); MEAN CORPUSCULAR HEMOGLOBIN 32 pg (27-31); MEAN CORPUSCULAR HGB CONC 34 % (32-36); MEAN CORPUSCULAR VOLUME 95 fL (79.0-98.0); MONOCYTES # (AUTO) 0.6 K/uL (0.0-1.0); MONOCYTES % (AUTO) 6.4 % (1.7-9.3); NEUTROPHILS # (AUTO) 7.7 K/uL (1.8-7.7); NEUTROPHILS % (AUTO) 87.5 % (40.0-70.0); PLATELET COUNT (AUTO) 373 K/uL (130-430); RED BLOOD CELL COUNT(AUTO) 2.84 MIL/uL (4.2-6.2); RED CELL DISTRIBUTION WIDTH 17.6 % (9.0-15.0); WHITE BLOOD COUNT (AUTO) 8.8 K/uL (4.8-10.8)
[2023-09-23 06:26] LABS: ANION GAP 13 (5-15); CALCIUM 7.8 mg/dL (8.4-11.0); CARBON DIOXIDE 22 mmol/L (23-29); CHLORIDE 115 mmol/L (98-107); CREATININE 1.07 mg/dL (0.55-1.30); GLUCOSE 184 mg/dL (74-106); POTASSIUM 4.1 mmol/L (3.5-5.1); SODIUM SERUM 150 mmol/L (136-145); UREA NITROGEN, BLOOD 18 mg/dL (8-21)
[2023-09-23] MEDS: METHYLPREDNISOLONE SOD SUCC 40 MG/ML VIAL IVP SCH (08:15)
[2023-09-23] MEDS: BALSAM PERU/CASTOR OIL 56.7 GM OINT...G. TP SCH (08:26)
[2023-09-23] MEDS: MONTELUKAST 10 MG TABLET PO SCH (19:02)
[2023-09-23] MEDS: PANTOPRAZOLE SODIUM 40 MG TAB PO ONE (19:02)
[2023-09-23] MEDS: predniSONE 20 MG TABLET PO SCH (21:54)
[2023-09-24] VITALS (12 sets, daily range): BP systolic 118–141; PULSE 86–96; RESP 16–19; TEMP 96.8–98.1; O2SAT 94–99
[2023-09-24 05:28] LABS: BASOPHILS % (AUTO) 0.1 % (0.0-2.0); HEMATOCRIT 28.1 % (36-48); HEMOGLOBIN 9.4 g/dL (12.0-16.0); LYMPHOCYTES # (AUTO) 0.5 K/uL (1.0-5.5); LYMPHOCYTES % (AUTO) 6.6 % (20.5-51.5); MEAN CORPUSCULAR HEMOGLOBIN 32 pg (27-31); MEAN CORPUSCULAR HGB CONC 34 % (32-36); MEAN CORPUSCULAR VOLUME 95 fL (79.0-98.0); MONOCYTES # (AUTO) 0.4 K/uL (0.0-1.0); MONOCYTES % (AUTO) 4.9 % (1.7-9.3); NEUTROPHILS # (AUTO) 7.2 K/uL (1.8-7.7); NEUTROPHILS % (AUTO) 88.4 % (40.0-70.0); PLATELET COUNT (AUTO) 368 K/uL (130-430); RED BLOOD CELL COUNT(AUTO) 2.95 MIL/uL (4.2-6.2); WHITE BLOOD COUNT (AUTO) 8.1 K/uL (4.8-10.8)
[2023-09-24 05:57] LABS: ANION GAP 11 (5-15); CALCIUM 8.3 mg/dL (8.4-11.0); CARBON DIOXIDE 22 mmol/L (23-29); CHLORIDE 116 mmol/L (98-107); CREATININE 0.84 mg/dL (0.55-1.30); GLUCOSE 121 mg/dL (74-106); POTASSIUM 4.4 mmol/L (3.5-5.1); SODIUM SERUM 149 mmol/L (136-145); UREA NITROGEN, BLOOD 14 mg/dL (8-21)
[2023-09-24] MEDS: PANTOPRAZOLE SODIUM 40 MG TAB PO SCH (09:42)
[2023-09-25] VITALS (11 sets, daily range): BP systolic 102–138; PULSE 87–103; RESP 16–20; TEMP 97.5–98.5; O2SAT 93–100
[2023-09-25] MEDS: LACTULOSE 20 GM/30 ML UDC GT ONE (15:53)
[2023-09-25] MEDS: METOCLOPRAMIDE HCL 10 MG TABLET PO SCH (18:49)
[2023-09-26] VITALS (10 sets, daily range): BP systolic 116–159; PULSE 97–120; RESP 16–22; TEMP 97.9–99.3; O2SAT 89–100
[2023-09-26 05:54] LABS: ANION GAP 13 (5-15); CALCIUM 7.9 mg/dL (8.4-11.0); CARBON DIOXIDE 20 mmol/L (23-29); CHLORIDE 110 mmol/L (98-107); CREATININE 0.83 mg/dL (0.55-1.30); GLUCOSE 148 mg/dL (74-106); POTASSIUM 5.1 mmol/L (3.5-5.1); SODIUM SERUM 143 mmol/L (136-145); UREA NITROGEN, BLOOD 11 mg/dL (8-21)
[2023-09-27] VITALS (11 sets, daily range): BP systolic 123–131; PULSE 98–110; RESP 16–18; TEMP 97.5–98.6; O2SAT 92–96
[2023-09-27] MEDS: IPRATROPIUM/ALBUTEROL SULFATE 3 ML AMPUL.NEB (DUONEB) INH SCH (07:19)
[2023-09-27 08:18] LABS: BASOPHILS % (AUTO) 0.1 % (0.0-2.0); EOSINOPHILS # (AUTO) 0.1 K/uL (0.0-0.4); EOSINOPHILS % (AUTO) 0.3 % (0.0-4.0); HEMATOCRIT 30.4 % (36-48); HEMOGLOBIN 10.1 g/dL (12.0-16.0); LYMPHOCYTES # (AUTO) 1.3 K/uL (1.0-5.5); LYMPHOCYTES % (AUTO) 7.2 % (20.5-51.5); MEAN CORPUSCULAR HEMOGLOBIN 32 pg (27-31); MEAN CORPUSCULAR HGB CONC 33 % (32-36); MEAN CORPUSCULAR VOLUME 96 fL (79.0-98.0); MONOCYTES # (AUTO) 1.2 K/uL (0.0-1.0); MONOCYTES % (AUTO) 6.5 % (1.7-9.3); NEUTROPHILS # (AUTO) 15.7 K/uL (1.8-7.7); NEUTROPHILS % (AUTO) 85.9 % (40.0-70.0); PLATELET COUNT (AUTO) 561 K/uL (130-430); RED BLOOD CELL COUNT(AUTO) 3.17 MIL/uL (4.2-6.2); WHITE BLOOD COUNT (AUTO) 18.2 K/uL (4.8-10.8)
[2023-09-27 08:34] LABS: ALANINE AMINOTRANSFERASE 15 U/L (12-78); ALBUMIN 2.2 g/dL (3.4-4.8); ANION GAP 12 (5-15); ASPARTATE AMINOTRANSFERASE 22 U/L (10-37); CALCIUM 8.3 mg/dL (8.4-11.0); CARBON DIOXIDE 21 mmol/L (23-29); CHLORIDE 109 mmol/L (98-107); CREATININE 0.81 mg/dL (0.55-1.30); GLUCOSE 135 mg/dL (74-106); POTASSIUM 4.9 mmol/L (3.5-5.1); SODIUM SERUM 142 mmol/L (136-145); TOTAL BILIRUBIN 0.4 mg/dL (0.0-1.0); TOTAL PROTEIN, SERUM 5.7 g/dL (6.4-8.3); UREA NITROGEN, BLOOD 14 mg/dL (8-21)
[2023-09-27] MEDS ORDERED: METO-290 PO (14:11)
[2023-09-27] MEDS ORDERED: PRED20TA PO (14:11)
[2023-09-27] MEDS ORDERED: IPRA3AMP9 INH (14:11)
[2023-09-27] MEDS ORDERED: PRO40 PO (14:11)
[2023-09-27] MEDS ORDERED: MONT-40 PO (14:11)
[2023-09-27] MEDS ORDERED: FURO-150 PO (14:34)
[2023-09-27] MEDS ORDERED: CEPH250S GT (14:38)
[2023-09-27] MEDS: FUROSEMIDE 20 MG/2 ML VIAL IVP ONE (14:45)
[2023-09-28] VITALS (8 sets, daily range): BP systolic 133–141; PULSE 94–99; RESP 17–20; TEMP 96–97.2; O2SAT 94–97
[2023-09-28 08:10] LABS: HEMATOCRIT 28.8 % (36-48); HEMOGLOBIN 9.5 g/dL (12.0-16.0); LYMPHOCYTES % (AUTO) 5.4 % (20.5-51.5); MEAN CORPUSCULAR HEMOGLOBIN 32 pg (27-31); MEAN CORPUSCULAR HGB CONC 33 % (32-36); MEAN CORPUSCULAR VOLUME 97 fL (79.0-98.0); MONOCYTES # (AUTO) 1.2 K/uL (0.0-1.0); MONOCYTES % (AUTO) 6.7 % (1.7-9.3); NEUTROPHILS # (AUTO) 15.6 K/uL (1.8-7.7); PLATELET COUNT (AUTO) 441 K/uL (130-430); RED BLOOD CELL COUNT(AUTO) 2.98 MIL/uL (4.2-6.2); RED CELL DISTRIBUTION WIDTH 18.3 % (9.0-15.0); WHITE BLOOD COUNT (AUTO) 17.7 K/uL (4.8-10.8)
[2023-09-28] MEDS ORDERED: FUROSEMIDE 20 MG/2 ML VIAL IVP SCH (09:00)
[2023-09-28 09:21] LABS: ANION GAP 11 (5-15); CALCIUM 8.4 mg/dL (8.4-11.0); CARBON DIOXIDE 22 mmol/L (23-29); CHLORIDE 111 mmol/L (98-107); CREATININE 0.67 mg/dL (0.55-1.30); GLUCOSE 126 mg/dL (74-106); POTASSIUM 5.1 mmol/L (3.5-5.1); SODIUM SERUM 144 mmol/L (136-145); UREA NITROGEN, BLOOD 15 mg/dL (8-21)
[2023-09-28 12:42] LABS: NEUTROPHILS % (AUTO) 87.9 % (40.0-70.0)
[2023-09-28] MEDS ORDERED: predniSONE 5 MG TABLET PO SCH (21:00)
== END 2023-09-28 15:11 | disposition home health service (06) | DRG 871 ==
LOC: SED 00:25 → SIC 03:14 → STU 09-21 21:55 → SMU 09-22 14:40
PROVIDERS: ADMIT Internal Medicine; ATTEND Internal Medicine
PROC: 0DH63UZ Insertion of Feeding Device into Stomach, Percutaneous Approach (ICD-10-PCS; principal; 2023-09-19)
PROC: 5A09357 Assistance with Respiratory Ventilation, Less than 24 Consecutive Hours, Continuous Positive Airway Pressure (ICD-10-PCS; 2023-09-19)
DX: A41.9 Sepsis, unspecified organism (principal); E43 Unspecified severe protein-calorie malnutrition; J69.0 Pneumonitis due to inhalation of food and vomit; J96.21 Acute and chronic respiratory failure with hypoxia; I50.31 Acute diastolic (congestive) heart failure; S22.39XA Fracture of one rib, unspecified side, initial encounter for closed fracture; J44.1 Chronic obstructive pulmonary disease with (acute) exacerbation; E87.1 Hypo-osmolality and hyponatremia; J44.0 Chronic obstructive pulmonary disease with (acute) lower respiratory infection; N17.9 Acute kidney failure, unspecified; N39.0 Urinary tract infection, site not specified; D63.8 Anemia in other chronic diseases classified elsewhere; Z66 Do not resuscitate; F03.B0 Unspecified dementia, moderate, without behavioral disturbance, psychotic disturbance, mood disturbance, and anxiety; E87.6 Hypokalemia; I11.0 Hypertensive heart disease with heart failure; E83.51 Hypocalcemia; K59.00 Constipation, unspecified; E88.A Wasting disease (syndrome) due to underlying condition; F03.90 Unspecified dementia, unspecified severity, without behavioral disturbance, psychotic disturbance, mood disturbance, and anxiety; R65.20 Severe sepsis without septic shock; R62.7 Adult failure to thrive; Z79.51 Long term (current) use of inhaled steroids; Z79.899 Other long term (current) drug therapy; Z74.01 Bed confinement status; Z68.24 Body mass index [BMI] 24.0-24.9, adult; L89.90 Pressure ulcer of unspecified site, unspecified stage; M81.0 Age-related osteoporosis without current pathological fracture; R13.10 Dysphagia, unspecified; R63.0 Anorexia; M10.9 Gout, unspecified; M62.81 Muscle weakness (generalized)
CPT/HCPCS: 36415; 36600; 43246; 71045; 80048; 80053; 81001; 81003; 82803; 83540; 83550; 83605; 83735; 83880; 84100; 84484; 85025; 85610; 85730; 87040; 87081; 87086; 92610-GN; 93005; 93306; 94070; 94640; 94660; 94664; 94760; 96365; 96375; 97110-GP; 97530-GP; 99285; G0378; J0456; J0690; J0696; J1030; J2250; J2543; J2916; J2930; J3010; J3480; J7050; J7060; J7512; J8597; Q5106